=== PATIENT | female | born 1985 | race Caucasian/White ===

== ENCOUNTER → 2025-05-06 08:16 | Outpatient (REF) | payer OTHER, BC, SELFPAY | LOC: HWRAD 08:16 | PROVIDERS: ATTENDING PHYSICIAN Nurse Practitioner; PRIMARYCARE PHYSICIAN Family Medicine | DX: N30.10 Interstitial cystitis (chronic) without hematuria (principal); R35.1 Nocturia | CPT/HCPCS: 76770; 76856 ==